=== PATIENT | male | born 1955 | race Caucasian/White ===

== ENCOUNTER 2019-03-19 08:38 | Emergency (ER) | payer BC ==
[2019-03-19 09:00] VITALS: BP 126/71
--- NOTE | 2019-03-19 09:03 | UC ---
Respiratory Complaint HPI - HPI Summary HPI Summary: Patient is 63 year old gentleman , who present today to the urgent care with cough for past 1 week and symptoms getting worse over time. Chest congestion with intermittent productive cough. Has been becoming more frequent, annoying cough. Cough is productive of phlegm. Exposed to who had viral symptoms. Denies any feve , chest pain but feels short of breath from coughing . Denies any abdominal pain , nausea or vomiting , diarrhea or constipation. - History of Current Complaint Chief Complaint: UCRespiratory Stated Complaint: COUGH Time Seen by Provider: 03/19/19 08:49 Hx Obtained From: Patient Pain Intensity: 0 - Allergies/Home Medications Allergies/Adverse Reactions: Allergies Allergy/AdvReac Type Severity Reaction Status Date / Time No Known Allergies Allergy Verified 03/19/19 08:56 Home Medications: Home Medications Aspirin EC TAB* [Ecotrin EC Low Dose 81 MG*] 81 mg PO DAILY 03/19/19 [History Confirmed 03/19/19] Atorvastatin* [Lipitor 20 MG*] 20 mg PO DAILY 03/19/19 [History Confirmed ] Clopidogrel TAB* [Plavix TAB*] 75 mg PO DAILY 03/19/19 [History Confirmed ] Nitroglycerin TAB 0.4 MG* 0.4 mg SL . NEEDED PRN 03/19/19 [History Confirmed 03/19/19] amLODIPine TAB* [Norvasc 5 mg TAB*] 5 mg PO DAILY 03/19/19 [History Confirmed ] PMH/Surg Hx/FS Hx/Imm Hx - Additional Past Medical History Additional PMH: Past Medical History : Hypertension, coronary artery disease a status post 3 stent placement, sleep apnea, GERD Past Surgical History: Appendectomy, cholecystectomy, stent placement Family History : non contributory Social History : Occasional alcohol, non smoker, no drug use. Previously Healthy: Yes - Surgical History Surgical History: Yes Surgery Procedure, Year, and Place: APPENDECTOMY, GALL BLADDER REMOVAL. 3 CARDIAC STENTS - Family History Known Family History: Positive: Non-Contributory - Social History Alcohol Use: Rare Substance Use Type: None Smoking Status (MU): Never Smoked Tobacco Review of Systems All Other Systems Reviewed And Are Negative: Yes Constitutional: Positive: Fever, Fatigue Skin: Positive: Negative Eyes: Positive: Negative ENT: Positive: Negative, Sinus Congestion Respiratory: Positive: Shortness Of Breath, Cough Cardiovascular: Positive: Negative Gastrointestinal: Positive: Negative Genitourinary: Positive: Negative Motor: Positive: Negative Neurovascular: Positive: Negative Musculoskeletal: Positive: Negative Neurological: Positive: Negative Psychological: Positive: Negative Is Patient Immunocompromised?: No Physical Exam - Summary Physical Exam Summary: Physical Exam: Const: Appears well. No signs of apparent distress present. Alert and oriented x 3. Musculo: Walks with a normal gait. Head/Face: Atraumatic, normocephalic on inspection. Eyes: EOMI and PERRLA in both eyes. Conjunctivae clear. No discharge noted ENT: Hearing normal, TM normal appearing on the right side and could not be visualized due to impacted wax on the left side No tenderness to palpation on maxillary and frontal sinus. No significant pharyngeal erythema or exudates . Uvula is midline. No cervical or submandibular lymphadenopathy noted. Respiratory: Respirations are unlabored. Air entry good bilaterally but mild rhonchi/ crackles heard on the right side in the lower lung oneal. No crepitations or wheezing CVS: Regular rate and Rhythm, S1S2 normal , no murmurs identified. Extremities: Peripheral circulation is grossly normal. Pulses 2+ Abdomen : Soft non tender , nondistended , Bowel sounds present . No guarding , rebound tenderness or rigidity noted. Skin: No lesions or rash located on the upper extremities or on the lower extremities. Neuro: Cranial nerves II to XII intact, motor and sensory intact. DTR Intact bilaterally. Mood is normal. Affect is normal. Triage Information Reviewed: Yes Vital Signs: Initial Vital Signs Temp 97.9 F 03/19/19 08:56 Pulse 71 03/19/19 08:56 Resp 17 03/19/19 08:56 BP 126/71 03/19/19 08:56 Pulse Ox 98 03/19/19 08:56 Vital Signs Reviewed: Yes Diagnostics - Radiology No standard instances Radiology Interpretation Completed By: Radiologist - Chest Xrays: The lungs are clear. No pleural effusion is seen. IMPRESSION: NO EVIDENCE FOR ACTIVE CARDIOPULMONARY DISEASE. Respiratory Course/Dx - Course Course Of Treatment: During the visit today, we obtained Chest Xrays: The lungs are clear. No pleural effusion is seen. IMPRESSION: NO EVIDENCE FOR ACTIVE CARDIOPULMONARY DISEASE.. He does have a history of coronary artery disease and his symptoms are not getting better and brother getting worse, plan to treat him for atypical pneumonia. We discussed the findings and further plan. I will prescribe the medication to the pharmacy . Patient expressed understanding . - Differential Dx/Diagnosis Provider Diagnosis: Atypical pneumonia Discharge ED - Sign-Out/Discharge Documenting (check all that apply): Patient Departure All imaging exams completed and their final reports reviewed: Yes - Discharge Plan Condition: Stable Disposition: HOME Prescriptions: Azithromyxin YENIFER (NF) [Z-Yenifer (Zithromax) 250 mg tabs #6] 2 tab PO .TODAY, THEN 1 DAILY #6 tab Benzonatate CAP* [Tessalon 100 MG CAP*] 100 mg PO TID PRN 10 Days #30 cap PRN Reason: Cough Patient Education Materials: Pneumonia (ED) Referrals: Catie Sorensen PA [Primary Care Provider] - 1 Week Additional Instructions: Please start taking the medication as prescribed to the pharmacy . Follow up with your primary care doctor in 1 week Patients blood pressure slightly high in Urgent care today , plan follow up with PCP for better control Return to Urgent care / ER if symptoms get worse. - Billing Disposition and Condition Condition: STABLE Disposition: Home
== END 2019-03-19 10:25 | disposition home or self-care (01) ==
LOC: UCCORT 08:38
DX: J18.9 Pneumonia, unspecified organism (principal); I10 Essential (primary) hypertension; I25.10 Atherosclerotic heart disease of native coronary artery without angina pectoris; Z79.82 Long term (current) use of aspirin; Z79.899 Other long term (current) drug therapy; Z95.5 Presence of coronary angioplasty implant and graft
CPT/HCPCS: 71046; 99202; G0463